=== PATIENT | female | born 1995 | race Two or more races ===

== ENCOUNTER 2023-08-02 11:23 | Emergency (ER) | payer OTHER ==
[~2023-08-02] VITALS: Ht 160 cm; Wt 60.3 kg
[2023-08-02] MEDS ORDERED: LAYOLIS FE CHE1 EACH PO (12:08)
[2023-08-02] MEDS ORDERED: KETOROLAC TROMETHAMINE 60 MG VIAL IM ONE (16:30)
[2023-08-02] MEDS ORDERED: CORTISPORIN EAR10 M1 OPHT (16:40)
== END 2023-08-02 18:21 ==
LOC: ER 11:23
DX: H60.8X2 Other otitis externa, left ear (principal); Z91.013 Allergy to seafood; Z91.018 Allergy to other foods

== ENCOUNTER → 2023-08-03 | Emergency (ER) | payer OTHER ==
[~2023-08-03] MED LIST: CORTISPORIN EAR10 M1 OPHT; LAYOLIS FE CHE1 EACH PO
== END | disposition home or self-care (01) ==
LOC: ER 14:55
DX: H60.8X2 Other otitis externa, left ear (principal); Z91.013 Allergy to seafood; Z91.018 Allergy to other foods